=== PATIENT | female | born 1990 | race American Indian/Alaskan Native ===

== ENCOUNTER 2022-02-26 16:50 | Emergency (ER) | payer OTHER ==
[2022-02-26 17:22] VITALS: BP 107/62; PULSE 88; RESP 18; TEMP 98.7; BMI 30.9
[2022-02-26 18:12] LABS: PH,URINE 5.5 (5.0-8.0); URINE APPEARANCE CLOUDY; URINE BILIRUBIN NEGATIVE (NEGATIVE); URINE COLOR YELLOW; URINE GLUCOSE (UA) NEGATIVE (NEGATIVE); URINE KETONE NEGATIVE (NEGATIVE); URINE LEUK ESTERASE NEGATIVE (NEGATIVE); URINE NITRITE NEGATIVE (NEGATIVE); URINE PROTEIN NEGATIVE (NEGATIVE); URINE UROBILINOGEN 0.2 mg/dL (0.2-1.0)
[2022-02-26] MEDS ORDERED: LIDOCAINE 5% TOPICAL PATCH TP ONE (18:56)
[2022-02-26] MEDS ORDERED: LIDOCAINE 5% TOPICAL PATCH ONE (19:14)
[2022-02-26 19:59] LABS: BASO % 0.6 % (0-2.0); EOS % 1.9 % (0-4.5); HEMATOCRIT 37.8 % (32.4-45.2); HEMOGLOBIN 12.5 GM/dL (10.7-15.3); MEAN CELL VOLUME 84.9 fl (80-96); MEAN PLT VOLUME 7.5 fl (7.5-11.1); MONO % 4.3 % (3.8-10.2); NEUT % 62.2 % (42.8-82.8); PLATELET COUNT 304 10^3/uL (134-434); RBC 4.45 M/mm3 (3.60-5.2); RDW 12.9 % (11.6-15.6); WHITE BLOOD COUNT 9.3 K/mm3 (4.0-10.0)
[2022-02-26 20:07] LABS: INR 1.14 (0.83-1.09); PROTHROMBIN TIME (PATIENT) 13.1 SEC (9.7-13.0)
[2022-02-26 20:09] LABS: ACTIVATED PTT 33.1 SECONDS (25.2-36.5)
[2022-02-26 20:43] LABS: CALCIUM 9.5 mg/dL (8.5-10.1)
[2022-02-26 20:44] LABS: ALBUMIN 3.9 g/dl (3.4-5.0); BLOOD UREA NITROGEN 8.9 mg/dL (7-18)
[2022-02-26 20:46] LABS: CREATININE 0.7 mg/dL (0.55-1.3)
[2022-02-26 20:48] LABS: BILIRUBIN,TOTAL 0.4 mg/dL (0.2-1)
[2022-02-26 20:50] LABS: TOT PROT 7.5 g/dl (6.4-8.2)
== END 2022-02-26 22:07 | disposition home or self-care (01) ==
LOC: JER 16:50
DX: O26.891 Other specified pregnancy related conditions, first trimester (principal); R10.9 Unspecified abdominal pain; Z3A.01 Less than 8 weeks gestation of pregnancy
CPT/HCPCS: 36415; 76817-TC; 80053; 81003; 84702; 84703; 85025; 85610; 85730; 87086; 87186; 99284-25

== ENCOUNTER 2022-02-28 10:49 | Emergency (ER) | payer OTHER ==
[2022-02-28 11:41] VITALS: BP 111/67; PULSE 107; RESP 18; TEMP 97.7; BMI 38.9
== END 2022-02-28 13:55 | disposition home or self-care (01) ==
LOC: JERFT 10:49 → JER 10:49 → JERFT 13:55
DX: O26.891 Other specified pregnancy related conditions, first trimester (principal); M54.50 Low back pain, unspecified; Z3A.01 Less than 8 weeks gestation of pregnancy
CPT/HCPCS: 36415; 84702; 99283-25

== ENCOUNTER 2022-04-11 10:47 | Emergency (ER) | payer OTHER ==
[2022-04-11 10:58] VITALS: BP 119/41; PULSE 89; RESP 20; TEMP 97.9; BMI 30.1
[2022-04-11 12:31] LABS: BASO % 0.6 % (0-2.0); EOS % 1.2 % (0-4.5); HEMATOCRIT 37.2 % (32.4-45.2); HEMOGLOBIN 12.5 GM/dL (10.7-15.3); LYMPH % 26.1 % (8-40); MCH 28.2 pg (25.7-33.7); MCHC 33.6 g/dl (32.0-36.0); MEAN CELL VOLUME 83.9 fl (80-96); MEAN PLT VOLUME 8.2 fl (7.5-11.1); NEUT % 68.1 % (42.8-82.8); PLATELET COUNT 234 10^3/uL (134-434); RBC 4.44 M/mm3 (3.60-5.2); RDW 13.4 % (11.6-15.6); WHITE BLOOD COUNT 6.8 K/mm3 (4.0-10.0)
[2022-04-11 12:51] LABS: ALBUMIN 3.6 g/dl (3.4-5.0); BLOOD UREA NITROGEN 6.4 mg/dL (7-18); CALCIUM 8.9 mg/dL (8.5-10.1)
[2022-04-11 12:54] LABS: CREATININE 0.6 mg/dL (0.55-1.3)
[2022-04-11 12:56] LABS: BILIRUBIN,TOTAL 0.2 mg/dL (0.2-1); TOT PROT 7.1 g/dl (6.4-8.2)
[2022-04-11 13:06] LABS: INR 1.09 (0.83-1.09); PROTHROMBIN TIME (PATIENT) 12.5 SEC (9.7-13.0)
[2022-04-11 15:20] LABS: PH,URINE 5.5 (5.0-8.0); URINE APPEARANCE CLEAR; URINE BILIRUBIN NEGATIVE (NEGATIVE); URINE COLOR YELLOW; URINE GLUCOSE (UA) NEGATIVE (NEGATIVE); URINE KETONE NEGATIVE (NEGATIVE); URINE LEUK ESTERASE NEGATIVE (NEGATIVE); URINE NITRITE NEGATIVE (NEGATIVE); URINE PROTEIN NEGATIVE (NEGATIVE); URINE UROBILINOGEN 0.2 mg/dL (0.2-1.0)
== END 2022-04-11 15:38 | disposition home or self-care (01) ==
LOC: JER 10:47
DX: O20.9 Hemorrhage in early pregnancy, unspecified (principal); Z3A.10 10 weeks gestation of pregnancy
CPT/HCPCS: 36415; 76817-TC; 80053; 81003; 84702; 85025; 85610; 86850; 86900; 86901; 87086; 99284-25

== ENCOUNTER 2022-10-18 18:33 | Inpatient (IN) | payer OTHER ==
[2022-10-18] MEDS: ELECTROLYTE-148 SOLN 1,000 ML IV SCH (19:45)
[2022-10-18] MEDS ORDERED: CITRIC ACID/SODIUM CITRATE 30 ML UNIT-DOSE CUP PO ONE (20:15)
[2022-10-18] MEDS ORDERED: LIDOCAINE HCL 1% PRESERVATIVE FREE - 30ML VIAL ONE (20:23)
[2022-10-18] MEDS ORDERED: OXYTOCIN 20 UNITS in 0.9% NS 20 UNIT/1,000 ML INFUS.BAG IV ONE ×2 (20:23→23:52)
[2022-10-18] MEDS ORDERED: FENTANYL CITRATE/PF 50 MCG/ML VIAL ONE (20:33)
[2022-10-18] MEDS ORDERED: morphine SULFATE/PF 1 MG/2 ML (2cc Syringe - QUVA) ONE (20:33)
[2022-10-18] MEDS ORDERED: AZITHROMYCIN IVPB 500 MG/250 ML BAG IVPB ONE (21:02)
[2022-10-18] MEDS ORDERED: KETOROLAC TROMETHAMINE 30 MG/1 ML VIAL ONE (21:21)
[2022-10-18] MEDS ORDERED: OXYTOCIN 10 UNITS/ML VIAL ONE (21:21)
[2022-10-18] MEDS ORDERED: ONDANSETRON 4 MG/2 ML VIAL ONE (21:21)
[2022-10-18] MEDS ORDERED: ceFAZolin SODIUM 1 GM VIAL ONE (21:21)
[2022-10-18] MEDS ORDERED: LACTATED RINGERS SOLUTION 1,000 ML IV SCH (21:45)
[2022-10-18] MEDS ORDERED: ONDANSETRON 4 MG/2 ML VIAL IVPUSH PRN ×2 (21:45)
[2022-10-18] MEDS ORDERED: morphine SULFATE/PF 1 MG/2 ML (2cc Syringe - QUVA) IT ONE (21:45)
[2022-10-18] MEDS ORDERED: ACETAMINOPHEN 1000 MG/100 ML BAG IVPB ONE (21:46)
[2022-10-18] MEDS ORDERED: ACETAMINOPHEN INJECTION 100 ML IVPB ONE (21:54)
[2022-10-18] MEDS ORDERED: WITCH HAZEL 50% (TUCKS) 40 PAD/JAR PAD TP PRN (22:05)
[2022-10-18] MEDS ORDERED: IBUPROFEN 800 MG/8 ML IJ IVPB PRN (22:05)
[2022-10-18] MEDS ORDERED: METHYLERGONOVINE MALEATE 0.2 MG/1 ML AMP IM PRN (22:05)
[2022-10-18 22:20] LABS: CORD BASE EXCESS -4.8 mmol/L (0-2); CORD HCO3 20.8 mmHg (20-29); CORD PCO2 41.6 mmHg (30-78); CORD pH 7.079 (7.14-7.44); CORD pH 7.321 (7.14-7.44)
[2022-10-18 23:35] VITALS: BMI 33.4
[2022-10-18] MEDS: OXYTOCIN 20 UNITS in 0.9% NS 20 UNIT/1,000 ML INFUS.BAG IV SCH (23:55)
[2022-10-19 08:24] LABS: BASO % 0.3 % (0-2.0); EOS % 0.1 % (0-4.5); HEMATOCRIT 30.5 % (32.4-45.2); HEMOGLOBIN 9.8 GM/dL (10.7-15.3); LYMPH % 16.3 % (8-40); MCHC 32.3 g/dl (32.0-36.0); MEAN CELL VOLUME 80.7 fl (80-96); MEAN PLT VOLUME 8.5 fl (7.5-11.1); MONO % 6.3 % (3.8-10.2); PLATELET COUNT 200 10^3/uL (134-434); RBC 3.78 M/mm3 (3.60-5.2); RDW 16.9 % (11.6-15.6); WHITE BLOOD COUNT 10.1 K/mm3 (4.0-10.0)
[2022-10-19] MEDS: FERROUS SO4 325 MG TABLET (FP) PO SCH ×2 (09:07→21:48)
[2022-10-19] MEDS: PRENATAL VITAMINS W/ FOLIC ACID TABLET (FP) PO SCH (09:07)
[2022-10-19] MEDS: IBUPROFEN 600 MG TABLET (FP) PO PRN ×2 (09:08→21:48)
[2022-10-19] MEDS ORDERED: oxyCODONE HCL 5 MG TABLET PO PRN (10:05)
[2022-10-19 10:20] LABS: POC NITRAZINE NEG
[2022-10-19] MEDS: OXYTOCIN 20 UNITS in 0.9% NS 20 UNIT/1,000 ML INFUS.BAG IV SCH (12:00)
[2022-10-19] MEDS: ACETAMINOPHEN 325 MG TABLET (FP) PO PRN (16:00)
[2022-10-19] MEDS: SIMETHICONE 80 MG TAB.CHEW (FP) PO PRN (21:48)
[2022-10-19] MEDS ORDERED: BISACODYL 10 MG SUPP.RECT RC PRN (22:05)
[2022-10-20] MEDS: ELECTROLYTE-148 SOLN 1,000 ML IV SCH (00:07)
[2022-10-20] MEDS: OXYTOCIN 20 UNITS in 0.9% NS 20 UNIT/1,000 ML INFUS.BAG IV SCH (00:08)
[2022-10-20] MEDS: oxyCODONE HCL 5 MG TABLET PO PRN ×2 (08:18→13:49)
[2022-10-20] MEDS: SIMETHICONE 80 MG TAB.CHEW (FP) PO PRN ×2 (08:18→19:41)
[2022-10-20] MEDS: FERROUS SO4 325 MG TABLET (FP) PO SCH ×2 (10:19→22:01)
[2022-10-20] MEDS: ACETAMINOPHEN 325 MG TABLET (FP) PO PRN ×2 (10:19→18:11)
[2022-10-20] MEDS: PRENATAL VITAMINS W/ FOLIC ACID TABLET (FP) PO SCH (10:19)
[2022-10-21] MEDS: IBUPROFEN 600 MG TABLET (FP) PO PRN (06:43)
[2022-10-21] MEDS: SIMETHICONE 80 MG TAB.CHEW (FP) PO PRN (06:43)
[2022-10-21 07:55] LABS: BASO % 0.6 % (0-2.0); EOS % 1.1 % (0-4.5); HEMATOCRIT 29.5 % (32.4-45.2); HEMOGLOBIN 9.4 GM/dL (10.7-15.3); LYMPH % 15.9 % (8-40); MCH 25.9 pg (25.7-33.7); MCHC 31.8 g/dl (32.0-36.0); MEAN CELL VOLUME 81.5 fl (80-96); MEAN PLT VOLUME 7.7 fl (7.5-11.1); MONO % 3.7 % (3.8-10.2); NEUT % 78.7 % (42.8-82.8); PLATELET COUNT 222 10^3/uL (134-434); RBC 3.63 M/mm3 (3.60-5.2); WHITE BLOOD COUNT 8.5 K/mm3 (4.0-10.0)
[2022-10-21 09:01] VITALS: BP 113/71; PULSE 84; RESP 17; TEMP 98.2
[2022-10-21] MEDS: PRENATAL VITAMINS W/ FOLIC ACID TABLET (FP) PO SCH (10:37)
[2022-10-21] MEDS: FERROUS SO4 325 MG TABLET (FP) PO SCH (10:37)
[2022-10-21] MEDS: ACETAMINOPHEN 325 MG TABLET (FP) PO PRN (10:56)
== END 2022-10-21 11:50 | disposition home or self-care (01) | DRG 540 ==
LOC: JLDR 18:33 → J3W 10-19 00:26
PROVIDERS: ADMIT Obstetrics & Gynecology; ATTEND Obstetrics & Gynecology
PROC: 10D00Z1 Extraction of Products of Conception, Low, Open Approach (ICD-10-PCS; principal; 2022-10-18)
DX: O34.211 Maternal care for low transverse scar from previous cesarean delivery (principal); N85.8 Other specified noninflammatory disorders of uterus; O36.8330 Maternal care for abnormalities of the fetal heart rate or rhythm, third trimester, not applicable or unspecified; Z3A.39 39 weeks gestation of pregnancy; Z37.0 Single live birth
CPT/HCPCS: 36415; 36600; 82803; 83986-QW; 85025

== ENCOUNTER 2024-07-17 18:57 | Inpatient (IN) | payer OTHER ==
[2024-07-17] MEDS: ELECTROLYTE-148 SOLN 500 ML IV ONE (19:50)
[2024-07-17 20:18] LABS: ABSOLUTE IMMATURE GRANULOCYTES 0.03 x10^3/uL (0.0-0.031); BASOPHILS # 0.02 x10^3/uL (0.01-0.08); EOSINOPHIL % 0.2 % (0.7-5.8); EOSINOPHILS # 0.02 x10^3/uL (0.04-0.36); HEMATOCRIT 34.1 % (34.1-44.9); HEMOGLOBIN 10.7 g/dL (11.2-15.7); MCHC 31.4 g/dl (32.2-35.5); MEAN PLT VOLUME 9.7 fl (9.4-12.3); MONOCYTE # 0.44 x10^3/uL (0.24-0.86); MONOCYTE % 5.1 % (4.7-12.5); PLATELET COUNT 202 x10^3/uL (182-369); RDW 14.6 % (12.1-16.8)
[2024-07-17 20:30] LABS: ACTIVATED PTT 27.9 SECONDS (25.2-36.5)
[2024-07-17 21:08] LABS: POTASSIUM 4.1 mmol/L (3.5-5.1)
[2024-07-17 21:10] LABS: BLOOD UREA NITROGEN 7.7 mg/dL (7-18); CALCIUM 9.7 mg/dL (8.5-10.1)
[2024-07-17 21:12] LABS: SYPHILIS W/ RPR CONF NON-REACTIVE (NONREACTIVE)
[2024-07-17 21:14] LABS: CREATININE 0.5 mg/dL (0.55-1.3)
[2024-07-17] MEDS: CITRIC ACID/SODIUM CITRATE 30 ML UNIT-DOSE CUP PO ONE (21:39)
[2024-07-17] MEDS ORDERED: ONDANSETRON 4 MG/2 ML VIAL IVPUSH PRN (21:51)
[2024-07-17] MEDS ORDERED: OXYTOCIN 30 UNITS in 0.9% NS 30 UNIT/500 ML INFUS.BAG IVPB ONE (22:10)
[2024-07-17] MEDS ORDERED: ONDANSETRON 4 MG/2 ML VIAL ONE (22:12)
[2024-07-17] MEDS ORDERED: FENTANYL CITRATE/PF 50 MCG/ML VIAL ONE (22:13)
[2024-07-17] MEDS ORDERED: morphine SULFATE/PF 1 MG/2 ML (2cc Syringe - QUVA) ONE (22:13)
[2024-07-17 22:18] VITALS: BMI 35.6
[2024-07-17] MEDS: ELECTROLYTE-148 SOLN 1,000 ML IV SCH (22:30)
[2024-07-17] MEDS ORDERED: ACETAMINOPHEN 325 MG TABLET (FP) PO PRN (22:32)
[2024-07-17] MEDS ORDERED: SIMETHICONE 80 MG TAB.CHEW (FP) PO PRN (22:32)
[2024-07-17] MEDS ORDERED: IBUPROFEN 600 MG TABLET (FP) PO PRN (22:32)
[2024-07-17 22:38] LABS: HIV INTERPRETATION NEGATIVE (NEGATIVE)
[2024-07-17] MEDS ORDERED: AZITHROMYCIN IVPB 500 MG/250 ML BAG IVPB ONE (23:02)
[2024-07-17] MEDS ORDERED: PHENYLEPHRINE HCL 10 MG/1 ML SINGLE DOSE VIAL ONE (23:11)
[2024-07-17] MEDS ORDERED: OXYTOCIN 10 UNITS/ML VIAL ONE (23:36)
[2024-07-18 00:49] LABS: CORD BASE EXCESS -3.8 mmol/L (0-2); CORD PCO2 42.3 mmHg (30-78); CORD pH 7.333 (7.14-7.44)
[2024-07-18 00:53] LABS: CORD HCO3 24.3 mmHg (20-29); CORD PCO2 58.5 mmHg (30-78); CORD pH 7.236 (7.14-7.44)
[2024-07-18] MEDS ORDERED: OXYTOCIN 20 UNITS in 0.9% NS 20 UNIT/1,000 ML INFUS.BAG IV ONE (01:04)
[2024-07-18] MEDS: OXYTOCIN 20 UNITS in 0.9% NS 20 UNIT/1,000 ML INFUS.BAG IV SCH (01:20)
[2024-07-18] MEDS: METHYLERGONOVINE MALEATE 0.2 MG/1 ML AMP IM PRN (01:24)
[2024-07-18] MEDS ORDERED: TRANEXAMIC ACID 1000 MG/10 ML VIAL ONE (01:54)
[2024-07-18] MEDS: TRANEXAMIC ACID - 1,000 MG in SODIUM CHLORIDE 100 ML IVPB SCH (02:03)
[2024-07-18 03:55] LABS: HCV DIAGNOSTIC IN-HOUSE W/RFLX NON-REACTIVE (NONREACTIVE)
[2024-07-18] MEDS: ELECTROLYTE-148 SOLN 500 ML IV ONE (04:25)
[2024-07-18] MEDS: FERROUS SO4 325 MG TABLET (FP) PO SCH (08:00)
[2024-07-18 08:15] LABS: BASOPHILS # 0.02 x10^3/uL (0.01-0.08); HEMATOCRIT 33.9 % (34.1-44.9)
[2024-07-18 08:16] LABS: ABSOLUTE IMMATURE GRANULOCYTES 0.07 x10^3/uL (0.0-0.031); HEMOGLOBIN 10.4 g/dL (11.2-15.7); MCHC 30.7 g/dl (32.2-35.5); MEAN PLT VOLUME 10.2 fl (9.4-12.3); MONOCYTE # 0.63 x10^3/uL (0.24-0.86); MONOCYTE % 5.1 % (4.7-12.5); PLATELET COUNT 198 x10^3/uL (182-369); RDW 14.4 % (12.1-16.8)
[2024-07-18] MEDS: PRENATAL VITAMINS W/ FOLIC ACID TABLET (FP) PO SCH (10:00)
[2024-07-18] MEDS ORDERED: oxyCODONE HCL 5 MG TABLET PO PRN ×2 (10:33)
[2024-07-18] MEDS: IBUPROFEN 800 MG/8 ML IJ IVPB PRN (16:47)
[2024-07-18] MEDS: IBUPROFEN 600 MG TABLET (FP) PO PRN (19:40)
[2024-07-18] MEDS ORDERED: BISACODYL 10 MG SUPP.RECT RC PRN (22:33)
[2024-07-19] MEDS: ACETAMINOPHEN 325 MG TABLET (FP) PO PRN (05:59)
[2024-07-19 22:01] VITALS: RESP 18
[2024-07-20 07:46] LABS: ABSOLUTE IMMATURE GRANULOCYTES 0.05 x10^3/uL (0.0-0.031); BASOPHILS # 0.03 x10^3/uL (0.01-0.08); EOSINOPHILS # 0.14 x10^3/uL (0.04-0.36); HEMATOCRIT 28.7 % (34.1-44.9); HEMOGLOBIN 8.8 g/dL (11.2-15.7); MCHC 30.7 g/dl (32.2-35.5); MEAN CELL VOLUME 86.7 fl (79.4-94.8); MEAN PLT VOLUME 9.5 fl (9.4-12.3); MONOCYTE # 0.48 x10^3/uL (0.24-0.86); PLATELET COUNT 180 x10^3/uL (182-369); RDW 14.8 % (12.1-16.8)
[2024-07-21 10:32] VITALS: BP 125/84; PULSE 92; TEMP 98.2
== END 2024-07-21 12:45 | disposition home or self-care (01) | DRG 540 ==
LOC: JDEL 18:57 → JLDR 21:34 → J3W 07-18 03:57
PROVIDERS: ADMIT Obstetrics & Gynecology; ATTEND Obstetrics & Gynecology
PROC: 10D00Z1 Extraction of Products of Conception, Low, Open Approach (ICD-10-PCS; principal; 2024-07-17)
DX: O34.211 Maternal care for low transverse scar from previous cesarean delivery (principal); O99.892 Other specified diseases and conditions complicating childbirth; N73.6 Female pelvic peritoneal adhesions (postinfective); Z3A.35 35 weeks gestation of pregnancy; Z37.0 Single live birth
CPT/HCPCS: 36415; 36600; 59025; 59409; 80048; 82803; 85025; 85610; 85730; 86780; 86803; 86850; 86900; 86901; 87389; 88307-TC; 94010